=== PATIENT | male | born 1975 | race Caucasian/White ===

== ENCOUNTER 2018-10-30 13:10 | Emergency (ER) | payer OTHER ==
[~2018-10-30] VITALS: Ht 170.2 cm; Wt 87.5 kg
--- OUTSIDE RECORDS SUMMARY | ~2018-10-30 | XMS | Clinical Summary ---
Demographics + + + | Address | [address] | | | [place] [address] | + + + | Home Phone | | + + + | Preferred Language | Unknown | + + + | Marital Status | Single | + + + | Faith Affiliation | NON | + + + | Race | White | + + + | Ethnic Group | Not or | + + + Author + + + | Organization | Unknown | + + + | Address | Unknown | + + + | Phone | Unavailable | + + + Care Team Providers + +------+ + | Care Receiving Associate Store Name | Role | Phone | + +------+ + PP | Unavailable | + +------+ + Source Comments LAYO is fully live on both [facility] and [facility] Allergies Not on File Current Medications Not on file Active Problems Not on file Social History + +-------+ +--------+------+ | Tobacco Use | Types | Packs/Day | Years | Date | | | | | Used | | + +-------+ +--------+------+ | Never Assessed | | | | | + +-------+ +--------+------+ + + + | Sex Assigned at | Date Recorded | | | | + + + | Not on file | | + + + Plan of Treatment + + + + + | Health Maintenance | Due Date | Last Done | Comments | + + + + + | Influenza (Flu) | | | | | vaccination (#1) | 8 | | | + + + + + Results Not on filefrom Last 3 Months"
--- OUTSIDE RECORDS SUMMARY | ~2018-10-30 | XMS | Clinical Summary ---
Demographics + + + | Address | [address] | | | [place] [address] | + + + | Home Phone | | + + + | Preferred Language | Unknown | + + + | Marital Status | | + + + | Mormonism Affiliation | Unknown | + + + | Race | Unknown | + + + | Ethnic Group | Unknown | + + + Author + + + | Author | [facility] | + + + | Organization | [facility] | + + + | Address | Unknown | + + + | Phone | Unavailable | + + + Support + + +---------+ + | Name | Relationship | Address | Phone | + + +---------+ + | Zoë Jackson | ECON | Unknown | | + + +---------+ + | Siomara Jackson | ECON | Unknown | | + + +---------+ + Care Team Providers + +------+ + | Care Clinical Psychologist Private Practice Name | Role | Phone | + +------+ + | Joseline Julio | PP | | + +------+ + Allergies No Known Allergies Current Medications + + +-------+---------+------+------+-------+ | Prescription | Sig. | Disp. | Refills | Star | End | Statu | | | | | | t | Date | s | | | | | | Date | | | + + +-------+---------+------+------+-------+ | pantoprazole | Take 40 mg by mouth | | | | | Activ | | (PROTONIX) 40 MG | daily. | | | | | e | | tablet | | | | | | | + + +-------+---------+------+------+-------+ | gabapentin | Take 100 mg by mouth | | | | | Activ | | (NEURONTIN) 100 MG | 3 (three) times | | | | | e | | capsule | daily. | | | | | | + + +-------+---------+------+------+-------+ | Ibuprofen (ADVIL | Take by mouth as | | | | | Activ | | PO) | needed. | | | | | e | + + +-------+---------+------+------+-------+ | atorvastatin | Take 40 mg by mouth | | 0 | 08/2 | | Activ | | (LIPITOR) 40 MG | every evening. | | | 7/20 | | e | | tablet | | | | 17 | | | + + +-------+---------+------+------+-------+ Active Problems + + + | Problem | Noted Date | + + + | Dyslipidemia | 04/23/2017 | + + + | Shortness of breath | 04/23/2017 | + + + | Bilateral carpal tunnel syndrome | 05/28/2016 | + + + Family History + + +------+ + | Medical History | Relation | Name | Comments | + + +------+ + | Heart disease | Father | | CABG | + + +------+ + | Cancer | Maternal | | | | | Grandmoth | | | | | er | | | + + +------+ + | High cholesterol | Maternal | | | | | Grandmoth | | | | | er | | | + + +------+ + | High cholesterol | Mother | | | + + +------+ + | Arrhythmia | Paternal | | | | | Aunt | | | + + +------+ + | High cholesterol | Paternal | | | | | Aunt | | | + + +------+ + | Arrhythmia | Paternal | | | | | Uncle | | | + + +------+ + | Arrhythmia | Paternal | | | | | Uncle | | | + + +------+ + | Arrhythmia | Paternal | | | | | Uncle | | | + + +------+ + + +------+ + + | Relation | Name | Status | Comments | + +------+ + + | Father | | Alive | triple bypass, heart stents | + +------+ + + | Maternal Grandfather | | | heart bypass surgery | | | | (Age | | | | | 76) | | + +------+ + + | Maternal Grandmother | | | heart bypass, heart failure | | | | (Age | | | | | 70) | | + +------+ + + | Mother | | Alive | | + +------+ + + | Paternal Aunt | | Alive | | + +------+ + + | Paternal Uncle | | Alive | pacemaker | + +------+ + + | Paternal Uncle | | Alive | pacemaker | + +------+ + + | Paternal Uncle | | Alive | pacemaker | + +------+ + + Social History + +-------+ +--------+------+ | Tobacco Use | Types | Packs/Day | Years | Date | | | | | Used | | + +-------+ +--------+------+ | Never Smoker | | | | | + +-------+ +--------+------+ + +---+---+---+ | Smokeless Tobacco: | | | | | Never Used | | | | + +---+---+---+ + + +---------+ + | Alcohol Use | Drinks/We | oz/Week | Comments | | | ek | | | + + +---------+ + | Yes | | | rare | + + +---------+ + + + + | Sex Assigned at | Date Recorded | | | | + + + | Not on file | | + + + Last Filed Vital Signs + + + + | Vital Sign | Reading | Time Taken | + + + + | Blood Pressure | 134/92 | 04/23/2017 1:29 PM PDT | + + + + | Pulse | 78 | 04/23/2017 1:29 PM PDT | + + + + | Temperature | - | - | + + + + | Respiratory Rate | - | - | + + + + | Oxygen Saturation | 97% | 04/23/2017 1:29 PM PDT | + + + + | Inhaled Oxygen | - | - | | Concentration | | | + + + + | Weight | 91.6 kg (201 lb 14.4 | 04/23/2017 1:29 PM PDT | | | oz) | | + + + + | Height | 170.2 cm (5' 7") | 04/23/2017 1:29 PM PDT | + + + + | Body Mass Index | 31.62 | 04/23/2017 1:29 PM PDT | + + + + Plan of Treatment + + + + + | Health Maintenance | Due Date | Last Done | Comments | + + + + + | Vaccine: | | | | | Dtap/Tdap/Td (1 - | 2 | | | | Tdap) | | | | + + + + + | Vaccine: Influenza | | | | | (Season Ended) | 9 | | | + + + + + Results Not on filefrom Last 3 Months Insurance + +--------+ +------+-------+ + | Payer | Benefi | Subscriber | Type | Phone | Address | | | t Plan | ID | | | | | | / | | | | | | | Group | | | | | + +--------+ +------+-------+ + | MEDICAID | [employer] | [id number] | | | [address] | | | [place] | | | | [place] | | | [place] | | | | [phone] | | | AGRICULTURE LABORATORY TECHNICIAN | | | | | + +--------+ +------+-------+ + + +--------+ +--------+ + + | Guarantor Name | Accoun | Relation to | Date | Phone | Billing Address | | | t Type | Patient | of | | | | | | | | | | + +--------+ +--------+ + + | MATT JACKSON | Person | Self [birth year] Home: | [address] | | | al/Fam | | 1975 | [phone] [place], [place] | | | [place] | | [phone] | [phone] | + +--------+ +--------+ + +
--- OUTSIDE RECORDS SUMMARY | ~2018-10-30 | XMS | Clinical Summary ---
Demographics + + + | Address | [address] | | | [place] [address] | + + + | Home Phone | | + + + | Preferred Language | Unknown | + + + | Marital Status | | + + + | Congregation Affiliation | Unknown | + + + | Race | Unknown | + + + | Ethnic Group | Unknown | + + + Author + + + | Author | [facility] | + + + | Organization | [facility] | + + + | Address [...] Team Providers + +------+ + | Care Construction Trades Contractor Name | Role | Phone | + [...] +------+-------+ + | MEDICAID | [employer] | [id number] | | | [address] | | | [place] | | | | [place] | | | [place] | | | | [phone] | | | HOUSING MANAGER | | | | | + +--------+ [...] | | | [place] | | | [phone] | [phone] | + +--------+ +--------+ + +
--- OUTSIDE RECORDS SUMMARY | ~2018-10-30 | XMS | Clinical Summary ---
Demographics + + + | Address | [address] | | | [place] [address] | + + + | Home Phone [...] Team Providers + +------+ + | Care Computer Science Professor Name | Role | Phone | + +------+ + PP | Unavailable | + +------+ + Source Comments LAYO is fully live on both [facility] and [facility]Patient.[facility] Allergies Not on File Current Medications Not [...]
[~2018-10-30 13:10] MED LIST: GABAPENTIN100 MG PO; IBUPROFEN400 MG PO; LIPITOR40 MG PO; LORTAB 10 MG-3473 ML PO; LOVASTATIN40 MG PO; PROTONIX40 MG PO
[2018-10-30] MEDS ORDERED: NORCO 5-325 TA1 EACH PO (14:09)
== END 2018-10-30 14:17 | disposition home or self-care (01) ==
LOC: ED 13:10
DX: S50.11XA Contusion of right forearm, initial encounter (principal); E78.5 Hyperlipidemia, unspecified; Z79.899 Other long term (current) drug therapy; W55.12XA Struck by horse, initial encounter
CPT/HCPCS: 73090; 99283